=== PATIENT | male | born 1970 | race Caucasian/White ===

== ENCOUNTER 2022-03-21 03:17 | Observation (INO) | payer OTHER ==
[2022-03-21 03:24] VITALS: BMI 29.1
[2022-03-21] MEDS ORDERED: SODIUM CHLORIDE 1,000 ML IV SCH (03:30)
[2022-03-21 04:08] LABS: ALBUMIN 3.7 g/dl (3.4-5.0); BLOOD UREA NITROGEN 20.5 mg/dL (7-18); CALCIUM 8.9 mg/dL (8.5-10.1)
[2022-03-21 04:12] LABS: CREATININE 0.8 mg/dL (0.55-1.3)
[2022-03-21 04:13] LABS: TOT PROT 6.6 g/dl (6.4-8.2)
[2022-03-21 04:14] LABS: BILIRUBIN,TOTAL 0.5 mg/dL (0.2-1)
[2022-03-21 05:31] LABS: INR 1.08 (0.83-1.09); PROTHROMBIN TIME (PATIENT) 12.4 SEC (9.7-13.0)
[2022-03-21 05:34] LABS: ACTIVATED PTT 29.2 SECONDS (25.2-36.5)
[2022-03-21 06:12] LABS: BASO % 0.2 % (0-2.0); EOS % 2.2 % (0-4.5); HEMATOCRIT 45.1 % (35.4-49); HEMOGLOBIN 14.9 GM/dL (11.7-16.9); LYMPH % 24.3 % (8-40); MCH 29.9 pg (25.7-33.7); MEAN CELL VOLUME 90.5 fl (80-96); MEAN PLT VOLUME 8.7 fl (7.5-11.1); MONO % 6.5 % (3.8-10.2); NEUT % 66.8 % (42.8-82.8); PLATELET COUNT 192 10^3/uL (134-434); RBC 4.98 M/mm3 (4.00-5.60); RDW 13.4 % (11.9-15.9); WHITE BLOOD COUNT 5.8 K/mm3 (4.0-10.0)
[2022-03-21 08:04] LABS: PH,URINE 7.5 (5.0-8.0); URINE APPEARANCE CLEAR; URINE BILIRUBIN NEGATIVE (NEGATIVE); URINE COLOR YELLOW; URINE GLUCOSE (UA) NEGATIVE (NEGATIVE); URINE KETONE NEGATIVE (NEGATIVE); URINE LEUK ESTERASE NEGATIVE (NEGATIVE); URINE NITRITE NEGATIVE (NEGATIVE); URINE PROTEIN NEGATIVE (NEGATIVE); URINE UROBILINOGEN 0.2 mg/dL (0.2-1.0)
[2022-03-21] MEDS ORDERED: ACETAMINOPHEN 325 MG TABLET (FP) PO ONE (08:49)
[2022-03-21] MEDS ORDERED: ACETAMINOPHEN 325 MG TABLET (FP) ONE (09:54)
[2022-03-21 14:29] VITALS: BP 148/95; PULSE 63; TEMP 98
== END 2022-03-21 14:30 | disposition home or self-care (01) ==
LOC: JER 03:17 → EDBD 03:17 → JERBED 04:42 → UNDOADMOB 04:42 → INTOOBSV 04:42 → JERBED 11:17
PROVIDERS: ADMIT Internal Medicine; ATTEND Internal Medicine
DX: M62.81 Muscle weakness (generalized) (principal); R42 Dizziness and giddiness; R06.02 Shortness of breath; Z29.9 Encounter for prophylactic measures, unspecified
CPT/HCPCS: 36415; 70450-TC; 71045-TC-FY; 71275-TC; 80053; 80061; 81003; 82962; 83036; 84484; 85025; 85610; 85730; 86850; 86900; 86901; 93005; 93010; 99285-25; C9803-CS; G0378; Q9967; U0003; U0005

== ENCOUNTER 2024-07-15 10:35 | Emergency (ER) | payer OTHER ==
[2024-07-15 11:11] VITALS: TEMP 97.7; BMI 29.2
[2024-07-15 12:38] VITALS: BP 136/99; PULSE 55; RESP 14
== END 2024-07-15 12:39 | disposition home or self-care (01) ==
LOC: JER 10:35
DX: I10 Essential (primary) hypertension (principal); T41.3X5A Adverse effect of local anesthetics, initial encounter
CPT/HCPCS: 93005; 93010; 99283-25